=== PATIENT | male | born 1990 | race African-American/Black ===

== ENCOUNTER 2018-04-24 17:29 | Emergency (ER) | payer OTHER ==
[~2018-04-24] VITALS: Ht 177.8 cm; Wt 72.6 kg
[2018-04-24] MEDS ORDERED: ROBAXIN 750 MG750 M1 PO (18:33)
[2018-04-24] MEDS ORDERED: IBUPROFEN 800800 M1 PO (18:33)
[2018-04-24] MEDS ORDERED: ACETAMINOPHEN-1 EAC1 PO (18:53)
[2018-04-24 18:54] VITALS: BP 128/82
== END 2018-04-24 18:56 | disposition home or self-care (01) ==
LOC: M.ERS 17:29
DX: M54.5 Low back pain (principal); R07.81 Pleurodynia; M25.512 Pain in left shoulder